=== PATIENT | female | born 1990 | race African-American/Black ===

== ENCOUNTER 2016-08-05 23:32 | Emergency (ER) | payer MEDICAID ==
[~2016-08-05] VITALS: Ht 172.7 cm; Wt 79.0 kg
[2016-08-06] MEDS ORDERED: BACITRACIN ZINC OINT UDPKT TOP ONE (02:45)
[2016-08-06] MEDS ORDERED: LIDOCAINE HCL 1% 20ML VIAL (Pyxis) INJ MC ONE (02:45)
[2016-08-06] MEDS ORDERED: HYDROCODONE/ACETAMINOPHEN 5/325MG TABLET PO ONE (02:45)
[2016-08-06 04:11] VITALS: BP 114/58
== END 2016-08-06 04:35 | disposition home or self-care (01) ==
LOC: ER 23:32
DX: T63.301A Toxic effect of unspecified spider venom, accidental (unintentional), initial encounter (principal); J45.909 Unspecified asthma, uncomplicated; Y92.89 Other specified places as the place of occurrence of the external cause; Z88.8 Allergy status to other drugs, medicaments and biological substances
CPT/HCPCS: 10060; 99283; J3490; Z7610

== ENCOUNTER 2018-03-28 16:19 | Emergency (ER) | payer MEDICAID, OTHER ==
[~2018-03-28] VITALS: Ht 175.3 cm; Wt 86.0 kg
[2018-03-28] MEDS ORDERED: HYDROCODONE/ACETAMINOPHEN 5/325MG TABLET PO ONE (20:15)
[2018-03-28] MEDS ORDERED: KETOROLAC 30MG/ML VIAL IM ONE (20:15)
[2018-03-28] MEDS ORDERED: LIDOCAINE HCL/PF 1% 10 MG/ML 5ML VIAL IJ ONE (20:30)
[2018-03-28 22:17] VITALS: BP 140/72
== END 2018-03-28 22:18 | disposition home or self-care (01) ==
LOC: ER 16:19
DX: N75.0 Cyst of Bartholin's gland (principal); J45.909 Unspecified asthma, uncomplicated; G43.909 Migraine, unspecified, not intractable, without status migrainosus; E03.9 Hypothyroidism, unspecified; Z88.6 Allergy status to analgesic agent
CPT/HCPCS: 56420; 81025; 99283; J1885; J3490; Z7610

== ENCOUNTER 2018-04-15 06:16 | Emergency (ER) | payer MEDICAID, OTHER ==
[~2018-04-15] VITALS: Ht 172.7 cm; Wt 86.0 kg
[2018-04-15 06:26] VITALS: BP 121/82
== END 2018-04-15 15:39 | disposition left against medical advice (07) ==
LOC: ER 06:16
DX: M79.671 Pain in right foot (principal); Z53.21 Procedure and treatment not carried out due to patient leaving prior to being seen by health care provider

== ENCOUNTER 2020-04-01 21:15 | Emergency (ER) | payer OTHER ==
[~2020-04-01] VITALS: Ht 172.7 cm; Wt 87.0 kg
[2020-04-01] MEDS ORDERED: ACETAMINOPHEN 325MG TABLET PO ONE (21:45)
[2020-04-01 22:55] VITALS: BP 112/68
== END 2020-04-01 22:57 | disposition home or self-care (01) ==
LOC: ER 21:15
DX: S09.8XXA Other specified injuries of head, initial encounter (principal); S60.221A Contusion of right hand, initial encounter; S90.01XA Contusion of right ankle, initial encounter; S70.02XA Contusion of left hip, initial encounter; J45.909 Unspecified asthma, uncomplicated; E89.0 Postprocedural hypothyroidism; G43.909 Migraine, unspecified, not intractable, without status migrainosus; W05.2XXA Fall from non-moving motorized mobility scooter, initial encounter; Y93.89 Activity, other specified; Y92.89 Other specified places as the place of occurrence of the external cause
CPT/HCPCS: 73130; 73502; 73610; 99284